=== PATIENT | female | born 1960 | race Caucasian/White ===

== ENCOUNTER 2016-09-02 03:47 | Emergency (ER) | payer OTHER ==
[2016-09-02 04:08] VITALS: BP 151/71
--- NOTE | 2016-09-02 04:50 | EDM.PDOC ---
ED HPI GENERAL MEDICAL PROBLEM - General Chief Complaint: Fever Stated Complaint: FEVER/COUGH/CONGESTION Time Seen by Provider: 09/02/16 04:06 Source of Information: Reports: Patient, RN Notes Reviewed - History of Present Illness INITIAL COMMENTS - FREE TEXT/NARRATIVE: 56-year-old lady comes in with cough, nasal and sinus congestion, and new-onset fever and chills early this morning. She's been coughing for about a week to 10 days. She's had a lot of nasal and sinus congestion. There's been postnasal drainage. What she has been blowing and spitting out his been yellow in coloration. However she had not been running a fever until very early this morning with sudden onset of fever and chills. She did take some Tylenol about an hour and half ago. Continues to have fever on arrival to the ED. He said mild scratchy throat but no severe throat discomfort. She does not feel short of breath. No abdominal pain vomiting or other unusual symptomatology. Headache Pain Score (Numeric/FACES): 8 - Related Data Allergies Allergy/AdvReac Type Severity Reaction Status Date / Time Penicillins Allergy Rash Verified 05/26/14 13:53 Sulfa (Sulfonamide Allergy rash/hives Verified 05/26/14 13:53 Antibiotics) Home Meds: Home Meds Hydrochlorothiazide 25 mg PO DAILY 08/03/13 [History] Hydroxychloroquine Sulfate [Plaquenil] 200 mg PO BID 02/05/14 [History] Methotrexate 15 mg PO Q7D 02/05/14 [History] Folic Acid 1 mg PO DAILY 05/25/14 [History] Nitrofurantoin [place]/Macrocryst [Nitrofurantoin [place]-MCR] 100 mg PO ASDIRECTED PRN 05/25/14 [History] Simvastatin 1 tab PO QPM 05/25/14 [History] Levofloxacin [Levaquin] 500 mg PO ONETIME #7 tablet 09/02/16 [Rx] Levothyroxine [Synthroid] 100 mcg PO DAILY 09/02/16 [History] Past Medical History HEENT History: Reports: Cataract Genitourinary History: Reports: Renal Calculus Musculoskeletal History: Reports: RA Endocrine/Metabolic History: Reports: Hypothyroidism - Past Surgical History HEENT Surgical History: Reports: Cataract Surgery Female Surgical History: Reports: Section, Hysterectomy, Other (See Below) Other Female Surgeries/Procedures: Left kidney removed. Musculoskeletal Surgical History: Reports: Other (See Below) Other Musculoskeletal Surgeries/Procedures:: lower back and upper neck sx Social & Family History - Family History Family Medical History: Noncontributory - Tobacco Use Smoking Status *Q: Never Smoker Used Tobacco, but Quit: Yes Second Hand Smoke Exposure: No - Alcohol Use Days Per Week of Alcohol Use: 0 - Recreational Drug Use Recreational Drug Use: No ED ROS GENERAL - Review of Systems Review Of Systems: See Below Constitutional: Reports: Fever, Chills HEENT: Reports: Rhinitis, Sinus Problem, Throat Pain (Mild) Respiratory: Reports: Cough, Sputum (Yellow). Denies: Shortness of Breath, Wheezing, Pleuritic Chest Pain Cardiovascular: Reports: Chest Pain (With coughing) GI/Abdominal: Denies: Abdominal Pain, Nausea, Vomiting Musculoskeletal: Reports: Other (Generalized achiness) Skin: Denies: Rash Neurological: Reports: Dizziness (Mild) ED EXAM, GENERAL - Physical Exam Exam: See Below General Appearance: Alert, Mild Distress Eye Exam: Bilateral Eye: PERRL Ears: Normal External Exam Throat/Mouth: Normal Inspection, Normal Oropharynx Head: Sinus Tenderness (Bilateral). No: Facial Swelling Neck: Supple. No: Lymphadenopathy (L), Lymphadenopathy (R) Respiratory/Chest: No Respiratory Distress, Lungs Clear, Normal Breath Sounds Cardiovascular: Tachycardia GI/Abdominal: Soft, Non-Tender Extremities: Normal Inspection. No: Pedal Edema, Leg Pain Neurological: Alert, Oriented, No Motor/Sensory Deficits Skin Exam: Warm, Dry Course - Vital Signs Last Recorded V/S: Last Vital Signs Temp 100.0 F 09/02/16 04:04 Pulse 109 H 09/02/16 04:04 Resp 18 09/02/16 04:04 BP 151/71 H 09/02/16 04:04 Pulse Ox 94 L 09/02/16 04:04 - Orders/Labs/Meds Orders: Active Orders 24 hr Category Date Time Status Chest 1V Frontal [CR] Stat Exams 09/02/16 04:33 Taken Meds: Medications Discontinued Medications Generic Name Dose Route Start Last Admin Trade Name Freq PRN Reason Stop Dose Admin Levofloxacin 750 mg 09/02/16 04:53 Levaquin PO 09/02/16 04:54 ONETIME ONE Departure - Departure Time of Disposition: 04:59 Disposition: Home, Self-Care 01 Condition: fair Clinical Impression: Sinusitis Qualifiers: Sinusitis location: unspecified location Chronicity: acute Recurrence: not specified as recurrent Qualified Code(s): J01.90 - Acute sinusitis, unspecified - Discharge Information Forms: ED Department Discharge, Return to Work/School Form Additional Instructions: Rest, drink plenty of fluids, you've been given Levaquin 750 mg orally while here in the ED, the prescription for Levaquin 500 milligrams [facility]. Take that once daily for one week or until gone, followup clinic if not much better within 3-4 days as expected, continue Tylenol every 6- 8 hours as needed for fever or other discomfort, You may take Advil or ibuprofen in between doses as needed. Return to ED as needed if symptoms worsening in any way. - My Orders Last 24 Hours: My Active Orders 09/02/16 04:33 Chest 1V Frontal [CR] Stat - Assessment/Plan Last 24 Hours: My Active Orders 09/02/16 04:33 Chest 1V Frontal [CR] Stat
[2016-09-02] MEDS ORDERED: Levofloxacin 250 MG Tab PO ONE (04:53)
--- NOTE | 2016-09-02 09:37 | CR ---
Chest: Portable view of the chest was obtained. Comparison: Previous chest x-ray of 07/26/15. Heart size and mediastinum are within normal limits for portable technique. Lungs are clear with no acute infiltrates. Bony structures are grossly intact. Previous cervical spine surgery is noted. Impression: 1. Nothing acute is identified on portable chest x-ray. Diagnostic code #1
== END 2016-09-02 05:11 | disposition home or self-care (01) ==
LOC: JD.ED 03:47
DX: J01.90 Acute sinusitis, unspecified (principal); E03.9 Hypothyroidism, unspecified; Z98.49 Cataract extraction status, unspecified eye; Z90.710 Acquired absence of both cervix and uterus; Z98.890 Other specified postprocedural states; Z90.5 Acquired absence of kidney; Z87.891 Personal history of nicotine dependence; Z79.899 Other long term (current) drug therapy; Z88.0 Allergy status to penicillin; Z88.2 Allergy status to sulfonamides
CPT/HCPCS: 71010; 99283; A9270

== ENCOUNTER 2019-12-07 06:13 | Emergency (ER) | payer OTHER ==
[2019-12-07] MEDS ORDERED: Ondansetron 4 MG/2 ML SDV IVPUSH ONE (06:59)
[2019-12-07] MEDS ORDERED: HYDROmorphone 1 MG/ML Syringe IVPUSH ONE (06:59)
[2019-12-07] MEDS ORDERED: Dextrose 5%-0.9% NaCl 1,000 ML IV SCH (07:00)
[2019-12-07] MEDS ORDERED: Ketorolac 30 MG/ML SDV IVPUSH SCH (07:00)
--- NOTE | 2019-12-07 07:03 | EDM.PDOC ---
ED HPI GENERAL MEDICAL PROBLEM - General Chief Complaint: Flank Pain Stated Complaint: HEADACHE/R FLANK PAIN/NAUSEA Time Seen by Provider: 12/07/19 06:58 Source of Information: Reports: Patient History Limitations: Reports: No Limitations - History of Present Illness INITIAL COMMENTS - FREE TEXT/NARRATIVE: 59-year-old female presents to the ED with a pounding throbbing headache that she awoke with around 0430 hrs. this morning. Associated nausea. She states she rarely gets headaches. She then appreciated that she was experiencing significant right low back flank pain. She denies any dysuria urgency or frequency. She has a history of kidney stones but last bout was about 14 years ago. She has not noticed any dark color to her urine or ignacio blood. She feels cold and chilled. She is mildly warm to palpation. Has not vomited at home. Denies cough or sputum production. No previous abdominal surgery she states however she only has the right kidney . 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 Onset: Today, Sudden Onset Date: 12/07/19 Onset Time: 04:30 Duration: Hour(s):, Getting Worse Location: Reports: Head, Back (Generalized pounding throbbing headache. Right flank and lower back pain) Quality: Reports: Ache, Throbbing Severity: Moderate (8 out of 10) Improves with: Reports: None Worsens with: Reports: None, Rest Context: Denies: Activity, Exercise, Lifting, Sick Contact, Trauma, Other Associated Symptoms: Reports: Fever/Chills, Headaches, Loss of Appetite, Nausea/Vomiting. 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) Other Treatments SALES PERFORMANCE ANALYST: 50 mg tramadol - Related Data Allergies Allergy/AdvReac Type Severity Reaction Status Date / Time Penicillins Allergy Severe Rash Verified 12/07/19 06:36 Sulfa (Sulfonamide Allergy Severe rash/hives Verified 12/07/19 06:36 Antibiotics) Home Meds: Home Meds hydroCHLOROthiazide [Hydrochlorothiazide] 25 mg PO DAILY 08/03/13 [History] Hydroxychloroquine Sulfate [Plaquenil] 200 mg PO BID 02/05/14 [History] Methotrexate 15 mg PO Q7D 10/19/14 [History] Folic Acid 1 mg PO DAILY 05/25/14 [History] Nitrofurantoin [place]/Macrocryst [Nitrofurantoin [place]-MCR] 100 mg PO ASDIRECTED PRN 05/25/14 [History] Simvastatin 1 tab PO QPM 05/25/14 [History] Levofloxacin [Levaquin] 500 mg PO ONETIME #7 tablet 09/02/16 [Rx] Levothyroxine [Synthroid] 100 mcg PO DAILY 09/02/16 [History] Past Medical History HEENT History: Reports: Cataract Cardiovascular History: Reports: High Cholesterol Genitourinary History: Reports: Renal Calculus, Other (See Below) (Patient has h ad lithotripsy as well as surgery to remove stones from the right ureter.) Musculoskeletal History: Reports: RA Endocrine/Metabolic History: Reports: Hypothyroidism - Past Surgical History HEENT Surgical History: Reports: Cataract Surgery Female Surgical History: Reports: Section, Hysterectomy, Other (See Below) Other Female Surgeries/Procedures: Left kidney removed. Musculoskeletal Surgical History: Reports: Other (See Below) Other Musculoskeletal Surgeries/Procedures:: lower back and upper neck sx Social & Family History - Family History Family Medical History: Noncontributory - Tobacco Use Smoking Status *Q: Former Smoker Used Tobacco, but Quit: Yes Month/Year Tobacco Last Used: 1999 - Living Situation & Occupation Living situation: Reports: Occupation: Employed ED ROS GENERAL - Review of Systems Review Of Systems: See Below Constitutional: Reports: Fever, Chills, Malaise, Weakness, Fatigue, Decreased Appetite HEENT: Reports: No Symptoms Respiratory: Denies: Shortness of Breath, Wheezing, Pleuritic Chest Pain, Cough, Sputum Cardiovascular: Reports: No Symptoms Endocrine: Reports: Fatigue GI/Abdominal: Reports: Decreased Appetite, Nausea. Denies: Vomiting : Reports: Flank Pain (Right flank pain). Denies: Frequency, Urgency Musculoskeletal: Reports: Back Pain (Right lower back pain) Skin: Reports: No Symptoms Neurological: Reports: Headache (Constant pounding throbbing headache.) Psychiatric: Reports: No Symptoms Hematologic/Lymphatic: Reports: No Symptoms Immunologic: Reports: No Symptoms ED EXAM, RENAL/ - Physical Exam Exam: See Below Exam Limited By: No Limitations General Appearance: Alert, WD/WN, Moderate Distress, Other (Patient does feel warm to palpation. Temperature is recorded 37.5 pulse is 72 and sinus respiratory 16 sats are 96% on room air BP 161/83) Eye Exam: Bilateral Eye: Normal Inspection, PERRL Respiratory/Chest: No Respiratory Distress, Lungs Clear, Normal Breath Sounds, No Accessory Muscle Use Cardiovascular: Normal Peripheral Pulses, Regular Rate, Rhythm, No Edema, No Gallop, No Murmur, No Rub GI/Abdominal: Normal Bowel Sounds, Soft, Non-Tender, No Organomegaly, No Abnormal Bruit, No Mass, Pelvis Stable Back Exam: Normal Inspection, Full Range of Motion, Decreased Range of Motion, Paraspinal Tenderness (Right side from thoracic 9 to lumbar 3 to palpation. No true CVA tenderness identified). No: CVA Tenderness (L), CVA Tenderness (R) Extremities: Normal Inspection, Normal Range of Motion, Non-Tender, No Pedal Edema Neurological: Alert, Oriented, CN II-XII Intact, Normal Cognition, Normal Gait Psychiatric: Normal Affect, Normal Mood Skin Exam: Warm, Dry, Intact, Normal Color Course - Vital Signs Last Recorded V/S: Last Vital Signs Temp 37.5 C 12/07/19 06:31 Pulse 72 12/07/19 06:31 Resp 16 12/07/19 06:31 BP 161/83 H 12/07/19 06:31 Pulse Ox 96 12/07/19 06:31 - Orders/Labs/Meds Orders: Active Orders 24 hr Category Date Time Status Oxygen Therapy, ED [RC] ASDIRECTED Care 12/07/19 07:36 Active CORONAVIRUS COVID-19 PCR PHL Stat Lab 12/07/19 08:47 Ordered CULTURE BLOOD [BC] Stat Lab 12/07/19 07:36 Received CULTURE BLOOD [BC] Stat Lab 12/07/19 07:43 Received Dextrose 5%-0.9% NaCl [Dextrose 5%-Normal Saline] 1,000 Med 12/07/19 07:00 Active ml IV ASDIRECTED Ketorolac [Toradol] Med 12/07/19 07:00 Active 30 mg IVPUSH ONETIME Blood Culture x2 Reflex Set [OM.PC] Stat Oth 12/07/19 07:07 Ordered Medication Orders Dextrose/Sodium Chloride (Dextrose 5%-Normal Saline) 1,000 mls @ 500 mls/hr IV ASDIRECTED [facility] Last Admin: 12/07/19 07:19 Dose: 500 mls/hr Documented by: RUBIA Ketorolac Tromethamine (Toradol) 30 mg IVPUSH ONETIME DEBBY Last Admin: 12/07/19 07:12 Dose: 30 mg Documented by: RUBIA Labs: Laboratory Tests 12/07/19 12/07/19 12/07/19 Range/Units 06:56 06:56 06:56 WBC 3.11 L (3.98-10.04) K/mm3 RBC 3.98 (3.98-5.22) M/mm3 Hgb 12.8 (11.2-15.7) gm/dl Hct 39.3 (34.1-44.9) % MCV 98.7 H D (79.4-94.8) fl MCH 32.2 (25.6-32.2) pg MCHC 32.6 (32.2-35.5) g/dl RDW Std Deviation 44.8 (36.4-46.3) fL Plt Count 210 D (182-369) K/mm3 MPV 10.8 (9.4-12.3) fl Neutrophils % (Manual) 74 H (40-60) % Band Neutrophils % 0 (0-10) % Lymphocytes % (Manual) 17 L (20-40) % Atypical Lymphs % 0 % Monocytes % (Manual) 8 (2-10) % Eosinophils % (Manual) 0 L (0.7-5.8) % Basophils % (Manual) 1 (0.1-1.2) Platelet Estimate Adequate Plt Morphology Comment See note RBC Morph Comment Normal ESR (0-20) mm/hr Sodium 136 (136-145) mEq/L Potassium 3.8 (3.5-5.1) mEq/L Chloride 103 (98-107) mEq/L Carbon Dioxide 26 (21-32) mEq/L Anion Gap 10.8 (5-15) BUN 13 (7-18) mg/dL Creatinine 0.8 (0.55-1.02) mg/dL Est Cr Clr Drug Dosing 68.97 mL/min Estimated GFR (MDRD) > 60 (>60) mL/min BUN/Creatinine Ratio 16.3 (14-18) Glucose 91 (74-106) mg/dL Lactic Acid (0.4-2.0) mmol/L Calcium 8.9 (8.5-10.1) mg/dL Magnesium 1.7 L (1.8-2.4) mg/dl Total Bilirubin 0.2 (0.2-1.0) mg/dL AST 28 (15-37) U/L ALT 37 (14-59) U/L Alkaline Phosphatase 64 (46-116) U/L C-Reactive Protein 0.4 (<1.0) mg/dL Total Protein 6.2 L (6.4-8.2) g/dl Albumin 3.6 (3.4-5.0) g/dl Globulin 2.6 gm/dL Albumin/Globulin Ratio 1.4 (1-2) Urine Color Yellow (Yellow) Urine Appearance Clear (Clear) Urine pH 8.0 (5.0-8.0) Ur Specific [place] 1.020 (1.005-1.030) Urine Protein Negative (Negative) Urine Glucose (UA) Negative (Negative) Urine Ketones Negative (Negative) Urine Occult Blood Negative (Negative) Urine Nitrite Negative (Negative) Urine Bilirubin Negative (Negative) Urine Urobilinogen 0.2 (0.2-1.0) Ur Leukocyte Esterase Negative (Negative) Urine RBC 0-5 (0-5) /hpf Urine WBC 0-5 (0-5) /hpf Ur Epithelial Cells Not seen (0-5) /hpf Urine Bacteria Rare (FEW) /hpf Urine Mucus Not seen (FEW) /hpf 12/07/19 12/07/19 Range/Units 06:56 07:36 WBC (3.98-10.04) K/mm3 RBC (3.98-5.22) M/mm3 Hgb (11.2-15.7) gm/dl Hct (34.1-44.9) % MCV (79.4-94.8) fl MCH (25.6-32.2) pg MCHC (32.2-35.5) g/dl RDW Std Deviation (36.4-46.3) fL Plt Count (182-369) K/mm3 MPV (9.4-12.3) fl Neutrophils % (Manual) (40-60) % Band Neutrophils % (0-10) % Lymphocytes % (Manual) (20-40) % Atypical Lymphs % % Monocytes % (Manual) (2-10) % Eosinophils % (Manual) (0.7-5.8) % Basophils % (Manual) (0.1-1.2) Platelet Estimate Plt Morphology Comment RBC Morph Comment ESR 4 (0-20) mm/hr Sodium (136-145) mEq/L Potassium (3.5-5.1) mEq/L Chloride (98-107) mEq/L Carbon Dioxide (21-32) mEq/L Anion Gap (5-15) BUN (7-18) mg/dL Creatinine (0.55-1.02) mg/dL Est Cr Clr Drug Dosing mL/min Estimated GFR (MDRD) (>60) mL/min BUN/Creatinine Ratio (14-18) Glucose (74-106) mg/dL Lactic Acid 0.3 L (0.4-2.0) mmol/L Calcium (8.5-10.1) mg/dL Magnesium (1.8-2.4) mg/dl Total Bilirubin (0.2-1.0) mg/dL AST (15-37) U/L ALT (14-59) U/L Alkaline Phosphatase (46-116) U/L C-Reactive Protein (<1.0) mg/dL Total Protein (6.4-8.2) g/dl Albumin (3.4-5.0) g/dl Globulin gm/dL Albumin/Globulin Ratio (1-2) Urine Color (Yellow) Urine Appearance (Clear) Urine pH (5.0-8.0) Ur Specific [place] (1.005-1.030) Urine Protein (Negative) Urine Glucose (UA) (Negative) Urine Ketones (Negative) Urine Occult Blood (Negative) Urine Nitrite (Negative) Urine Bilirubin (Negative) Urine Urobilinogen (0.2-1.0) Ur Leukocyte Esterase (Negative) Urine RBC (0-5) /hpf Urine WBC (0-5) /hpf Ur Epithelial Cells (0-5) /hpf Urine Bacteria (FEW) /hpf Urine Mucus (FEW) /hpf Meds: Medications Generic Name Dose Route Start Last Admin Trade Name Freq PRN Reason Stop Dose Admin Dextrose/Sodium Chloride 1,000 mls @ 500 mls/hr 12/07/19 07:00 12/07/19 07:19 Dextrose 5%-Normal Saline IV 500 mls/hr ASDIRECTED DEBBY Administration Ketorolac Tromethamine 30 mg 12/07/19 07:00 12/07/19 07:12 Toradol IVPUSH 30 mg ONETIME DEBBY Administration Discontinued Medications Generic Name Dose Route Start Last Admin Trade Name Frank PRN Reason Stop Dose Admin Hydromorphone HCl 1 mg 12/07/19 06:59 12/07/19 07:14 Dilaudid IVPUSH 12/07/19 07:00 1 mg ONETIME ONE Administration Ondansetron HCl 4 mg 12/07/19 06:59 12/07/19 07:10 Zofran IVPUSH 12/07/19 07:00 4 mg ONETIME ONE Administration - Radiology Interpretation Free Text/Narrative:: 59-year-old female presents to the ED with a constant pounding throbbing headac he that she woke with at 0430 hrs. this morning. She rarely gets a headache. Associated nausea and photophobia. Secondly she is appreciated diffuse right low back pain starting in her right flank and radiating down the lower right lower back. She has a history of kidney stones but no stone is been passed for about 14 years. Prior to that she did have lithotripsy and sounds like open ureterotomy to remove the stone. Clinically she is febrile. She feels chilled. She was fine when she went to bed. She denies any history of dysuria urgency or frequency. Note no obvious blood in the urine. No flank pain on exam. Neuro exam is normal. Plan IV D5 normal saline at 500 mils per hour. Septic work-up will be completed including a lactic acid. Urinalysis . Plan will be to give her Dilaudid 1 mg with Toradol 30 mg and Zofran 4 mg IV for headache and nausea relief. - Re-Assessments/Exams Free Text/Narrative Re-Assessment/Exam: 12/07/19 08:19 White count is 3.11. Differential still pending hemoglobin is 12.8 with a hematocrit of 39.3. MCV is mildly elevated at 98.7. Platelet count 210,000. Chemistry shows a sodium of 136 and a potassium of 3.8. . Chloride is 103 with a bicarb of 26. Anion gap is 10.8. BUN is 13 with a creatinine of 0.8. GFR is greater than 60. Glucose is 91 lactic acid 0.3. Calcium is 8.9 magnesium slightly low at 1.7. Liver function normal C-reactive protein 0.4 total protein 6.2 albumin fraction 3.6 urinalysis reveals no abnormalities 12/07/19 08:44 Differential on the white count is 74% neutrophils no bands cells reported. The slide shows rare giant platelets appreciated. The mentation rate is 4. 12/07/19 08:48 on review the patient is feeling much improved. Headache is gone. Backache is markedly improved as well. Appears that her backache was still more musculoskeletal in origin since the urinalysis is negative. 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 She will be screened before she leaves. COVID-19 test will be sent to [facility] for analysis. She will be off work for the next 2 days until we know for sure that she is COVID negative. Continue Motrin 600 mg every 6 hours as needed for headache relief as needed. Departure - Departure Time of Disposition: 08:49 Disposition: Home, Self-Care 01 Condition: Fair Clinical Impression: Headache Qualifiers: Headache type: unspecified Headache chronicity pattern: acute headache Intractability: not intractable Qualified Code(s): R51 - Headache Acute low back pain Qualifiers: Back pain laterality: right Sciatica presence: without sciatica Qualified Code(s): M54.5 - Low back pain - Discharge Information *PRESCRIPTION DRUG MONITORING PROGRAM REVIEWED*: Not Applicable *COPY OF PRESCRIPTION DRUG MONITORING REPORT IN PATIENT ZEYAD: Not Applicable Referrals: Lisa Arroyo PA-C [Primary Care Provider] - Forms: ED Department Discharge, ED Return to Work/School Form Additional Instructions: Evaluation in the emergency room this morning in regards to awakening with a significant headache and photophobia characteristic of a migraine type headache. Associated nausea without vomiting. Also associated diffuse right low back pain. Concern was therefore for possible kidney stone recurrence or infection. No signs of infection were identified in the urinalysis and in fact it was completely normal. No suggestion of kidney stone. You were treated with a liter of IV fluids while in the ED you were given Dilaudid 1 mg with Toradol 30 mg IV and Zofran 4 mg IV for headache and nausea relief. You do have a low- grade fever. Therefore COVID-19 testing was carried out and the results should be available tomorrow afternoon as they will be sent to [facility] lab. Suggest continue Motrin 600 mg every 6 hours needed for headache relief back pain relief and fever relief. Off work today and tomorrow until the results of the COVID-19 test become available to you. We usually phone from the ED once the results are available to us. Suggest home to rest this morning and then resume regular diet as able. Sepsis Event Note (ED) - Evaluation Sepsis Screening Result: No Definite Risk - Focused Exam Vital Signs: Vital Signs Temp Pulse Resp BP Pulse Ox 12/07/19 06:31 37.5 C 72 16 161/83 H 96 - My Orders Last 24 Hours: My Active Orders 12/07/19 07:00 Dextrose 5%-0.9% NaCl [Dextrose 5%-Normal Saline] 1,000 ml IV ASDIRECTED Ketorolac [Toradol] 30 mg IVPUSH ONETIME 12/07/19 07:07 Blood Culture x2 Reflex Set [OM.PC] Stat 12/07/19 07:36 Oxygen Therapy, ED [RC] ASDIRECTED CULTURE BLOOD [BC] Stat 12/07/19 07:43 CULTURE BLOOD [BC] Stat 12/07/19 08:47 CORONAVIRUS COVID-19 PCR PHL Stat - Assessment/Plan Last 24 Hours: My Active Orders 12/07/19 07:00 Dextrose 5%-0.9% NaCl [Dextrose 5%-Normal Saline] 1,000 ml IV ASDIRECTED Ketorolac [Toradol] 30 mg IVPUSH ONETIME 12/07/19 07:07 Blood Culture x2 Reflex Set [OM.PC] Stat 12/07/19 07:36 Oxygen Therapy, ED [RC] ASDIRECTED CULTURE BLOOD [BC] Stat 12/07/19 07:43 CULTURE BLOOD [BC] Stat 12/07/19 08:47 CORONAVIRUS COVID-19 PCR PHL Stat
[2019-12-07 09:18] VITALS: BP 107/61; PULSE 68
== END 2019-12-07 09:17 | disposition home or self-care (01) ==
LOC: JD.ED 06:13
DX: U07.1 COVID-19 (principal); E03.9 Hypothyroidism, unspecified; E78.00 Pure hypercholesterolemia, unspecified; Z79.899 Other long term (current) drug therapy; Z87.891 Personal history of nicotine dependence; Z88.0 Allergy status to penicillin; Z88.2 Allergy status to sulfonamides
CPT/HCPCS: 36415; 80053; 81001; 83605; 83735; 85007; 85027; 85652; 86140; 87040; 87635; 96374; 96375; 99284; J1170; J1885; J2405; J7042; U0002

== ENCOUNTER 2020-02-09 19:08 | Emergency (ER) | payer OTHER ==
[2020-02-09 19:35] VITALS: BP 160/74; PULSE 77
[2020-02-09] MEDS ORDERED: HYDROmorphone 0.5 MG/0.5 ML Syringe IVPUSH ONE (19:41)
[2020-02-09] MEDS ORDERED: Acetaminophen 325 MG Tab PO ONE (19:41)
[2020-02-09] MEDS ORDERED: Ondansetron 4 MG/2 ML SDV IVPUSH ONE (19:41)
[2020-02-09] MEDS ORDERED: Dextrose 5%-0.9% NaCl 1,000 ML IV SCH (19:45)
--- NOTE | 2020-02-09 19:45 | EDM.PDOC ---
ED HPI GENERAL MEDICAL PROBLEM - General Chief Complaint: Headache Stated Complaint: HEADACHE/BODY ACHES Time Seen by Provider: 02/09/20 19:40 Source of Information: Reports: Patient History Limitations: Reports: No Limitations - History of Present Illness INITIAL COMMENTS - FREE TEXT/NARRATIVE: 59-year-old female presents to the ED for evaluation of generalized myalgia and particularly right mid back pain. Associated generalized headache with associated nausea and photophobia. She gets a headache occasionally. She was reports that she did see her desk operator in [place] yesterday and received a Kenalog injection in the right buttock. She states that she had a similar type reaction in November of this year with development of headache and body aches after receiving Kenalog injection but I was also identified at that time to be COVID-19 positive. She denies cough or sputum production. However she is well aware she has a fever of 102 at home. No rigors or shakes. Has felt chilled. Decreased appetite. Still has not regained her sense of taste or smell since initial Covid diagnosis the end of November( dec 07) had returned to work over the last 2 weeks and was feeling well up until yesterday after receiving the Kenalog injection. On exam she is definitely very warm to palpation. She indicates that she has in fact had her flu shot this year as well. Of note the patient only has a right kidney. 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 Onset: Today, Sudden Onset Date: 02/09/20 Onset Time: 09:00 Duration: Hour(s):, Getting Worse Location: Reports: Generalized (Generalized myalgia with associated headache) Quality: Reports: Ache (Neurolysed body aches) Severity: Moderate (Rates her headache as 8 out of 10) Improves with: Reports: Rest Worsens with: Reports: Movement Context: Reports: Other (Spontaneous occurrence.). Denies: Activity, Exercise, Lifting, Sick Contact, Trauma Associated Symptoms: Reports: Fever/Chills, Headaches, Loss of Appetite, Malaise, Nausea/Vomiting, Shortness of Breath, Weakness. 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 Anterior Forehead Pain Score (Numeric/FACES): 8 - Related Data Allergies Allergy/AdvReac Type Severity Reaction Status Date / Time Penicillins Allergy Severe Rash Verified 02/09/20 19:27 Sulfa (Sulfonamide Allergy Severe rash/hives Verified 02/09/20 19:27 Antibiotics) Home Meds: Home Meds hydroCHLOROthiazide [Hydrochlorothiazide] 25 mg PO DAILY 08/03/13 [History] Methotrexate 15 mg PO Q7D 02/05/14 [History] Folic Acid 1 mg PO DAILY 05/25/14 [History] Nitrofurantoin [place]/Macrocryst [Nitrofurantoin [place]-MCR] 100 mg PO ASDIRECTED PRN 05/25/14 [History] Simvastatin 1 tab PO QPM 05/25/14 [History] Levothyroxine [Synthroid] 100 mcg PO DAILY 09/02/16 [History] levoFLOXacin [Levaquin] 500 mg PO DAILY #9 tab 02/09/20 [Rx] Past Medical History HEENT History: Reports: Cataract Cardiovascular History: Reports: High Cholesterol Genitourinary History: Reports: Renal Calculus, Other (See Below) Musculoskeletal History: Reports: RA Endocrine/Metabolic History: Reports: Hypothyroidism, Obesity/BMI 30+ - Infectious Disease History Infectious Disease History: Reports: Novel Coronavirus - Past Surgical History HEENT Surgical History: Reports: Cataract Surgery Female Surgical History: Reports: Section, Hysterectomy, Other (See Below) Other Female Surgeries/Procedures: Left kidney removed. Musculoskeletal Surgical History: Reports: Other (See Below) Other Musculoskeletal Surgeries/Procedures:: lower back and upper neck sx Social & Family History - Family History Family Medical History: Noncontributory - Living Situation & Occupation Living situation: Reports: Occupation: Employed [employer] - Review of Systems Review Of Systems: See Below Constitutional: Reports: Fever, Chills, Malaise, Weakness, Fatigue, Decreased Appetite HEENT: Reports: Glasses Respiratory: Reports: Shortness of Breath. Denies: Wheezing, Pleuritic Chest Pain, Cough, Hemoptysis, Other Cardiovascular: Reports: Blood Pressure Problem, Dyspnea on Exertion, Lightheadedness, Palpitations. Denies: Claudication, Edema, Orthopnea Endocrine: Reports: Fatigue GI/Abdominal: Reports: Decreased Appetite, Nausea. Denies: Diarrhea, Vomiting : Denies: Dysuria, Incontinence, Urgency Musculoskeletal: Reports: Back Pain, Joint Pain (Particular in her knees hips lower back neck and shoulders.) Skin: Reports: No Symptoms Neurological: Reports: Dizziness, Headache, Weakness. Denies: Confusion, Syncope, Tingling, Gait Disturbance Psychiatric: Reports: No Symptoms Hematologic/Lymphatic: Reports: No Symptoms Immunologic: Reports: No Symptoms - Physical Exam Exam: See Below Exam Limited By: No Limitations General Appearance: Alert, WD/WN, Moderate Distress, Other (Patient is very warm to palpation. Temperature is 37.8 degrees according to nursing staff. Heart rate 77 respiratory rate 14 with O2 sats of 94% room air BP 160/74) Eye Exam: Bilateral Eye: Normal Inspection (No blepharal pallor or scleral icterus.) Throat/Mouth: Normal Inspection, Normal Lips, Normal Oropharynx, Other Head Exam: Atraumatic, Normocephalic (Tongue is moist) Neck: Normal Inspection, Full Range of Motion, Tender Lateral (Tender bilateral aspect of lateral cervical spine which is normal for her.). No: Lymphadenopathy (L), Lymphadenopathy (R) Respiratory/Chest: Lungs Clear, Normal Breath Sounds, Decreased Breath Sounds (Breath sounds are decreased to the lower 25% of lung martinez bilaterally) Cardiovascular: Normal Peripheral Pulses ( due to shallow breathing.), Regular Rate, Rhythm, No Edema, No Gallop, No Murmur, No Rub GI/Abdominal: Normal Bowel Sounds, Soft, Non-Tender, No Organomegaly, No Mass, Pelvis Stable. No: Guarding, Rigid, Rebound, Tender Neuro Exam (Abbreviated): Alert, Oriented, CN II-XII Intact, Normal Cognition, No Motor/Sensory Deficits Back Exam: Normal Inspection, CVA Tenderness (L), CVA Tenderness (R), Decreased Range of Motion, Paraspinal Tenderness. No: Muscle Spasm Extremities: Normal Inspection, Normal Range of Motion, Non-Tender, No Pedal Edema Psychiatric: Normal Affect, Normal Mood Skin Exam: Warm, Dry, Intact, Normal Color, No Rash #1 Interpretation EKG Date: 02/09/20 Time: 19:56 Rhythm: NSR Rate (Beats/Min): 77 [place]: Normal P-Wave: Enlarged (Left atrial hypertrophy pattern) QRS: Other (Initial poor R wave progression. Decreased voltage throughout the precordial leads.) ST-T: Other (T wave flattening aVL in lead V2 nonspecific finding) QT: Prolonged (Mildly prolonged) Course - Vital Signs Last Recorded V/S: Last Vital Signs Temp 37.8 C 02/09/20 20:16 Pulse 77 02/09/20 19:27 Resp 14 02/09/20 19:27 BP 160/74 H 02/09/20 19:27 Pulse Ox 94 L 02/09/20 19:27 - Orders/Labs/Meds Orders: Active Orders 24 hr Category Date Time Status EKG Documentation Completion [RC] STAT Care 02/09/20 19:43 Active Chest 1V Frontal [CR] Stat Exams 02/09/20 19:43 Taken CULTURE BLOOD [BC] Stat Lab 02/09/20 20:10 Received CULTURE BLOOD [BC] Stat Lab 02/09/20 20:20 Received CULTURE URINE [RM] Stat Lab 02/09/20 21:10 Received Dextrose 5%-0.9% NaCl [Dextrose 5%-Normal Saline] 1,000 Med 02/09/20 19:45 Active ml IV ASDIRECTED cefTRIAXone [Rocephin] 2 gm Med 02/09/20 21:45 Active Sodium Chloride 0.9% [Normal Saline] 100 ml IV Q24H Blood Culture x2 Reflex Set [OM.PC] Stat Oth 02/09/20 19:45 Ordered Medication Orders Dextrose/Sodium Chloride (Dextrose 5%-Normal Saline) 1,000 mls @ 500 mls/hr IV ASDIRECTED DEBBY Last Admin: 02/09/20 20:17 Dose: 500 mls/hr Documented by: DYAN Ceftriaxone Sodium 2 gm/ (Sodium Chloride) 100 mls @ 200 mls/hr IV Q24H DEBBY Last Admin: 02/09/20 21:45 Dose: 200 mls/hr Documented by: STACIA Labs: Laboratory Tests 02/09/20 02/09/20 02/09/20 Range/Units 20:10 20:10 20:10 WBC 9.11 (3.98-10.04) K/mm3 RBC 3.97 L (3.98-5.22) M/mm3 Hgb 12.4 (11.2-15.7) gm/dl Hct 37.5 (34.1-44.9) % MCV 94.5 D (79.4-94.8) fl MCH 31.2 (25.6-32.2) pg MCHC 33.1 (32.2-35.5) g/dl RDW Std Deviation 44.0 (36.4-46.3) fL Plt Count 238 (182-369) K/mm3 MPV 10.4 (9.4-12.3) fl Neutrophils % (Manual) 81 H (40-60) % Band Neutrophils % 2 (0-10) % Lymphocytes % (Manual) 7 L (20-40) % Atypical Lymphs % 0 % Monocytes % (Manual) 10 (2-10) % Eosinophils % (Manual) 0 L (0.7-5.8) % Basophils % (Manual) 0 L (0.1-1.2) Platelet Estimate Adequate RBC Morph Comment Normal PT 11.2 (9.7-12.0) SECONDS INR 1.05 APTT 31.8 H (21.7-31.4) SECONDS Sodium 133 L (136-145) mEq/L Potassium 3.2 L (3.5-5.1) mEq/L Chloride 97 L (98-107) mEq/L Carbon Dioxide 24 (21-32) mEq/L Anion Gap 15.2 H (5-15) BUN 9 (7-18) mg/dL Creatinine 0.7 (0.55-1.02) mg/dL Est Cr Clr Drug Dosing 75.65 mL/min Estimated GFR (MDRD) > 60 (>60) mL/min BUN/Creatinine Ratio 12.9 L (14-18) Glucose 90 (74-106) mg/dL Lactic Acid (0.4-2.0) mmol/L Calcium 9.0 (8.5-10.1) mg/dL Magnesium 1.5 L (1.8-2.4) mg/dl Ferritin (8-252) ng/ml Total Bilirubin 0.5 (0.2-1.0) mg/dL AST 15 (15-37) U/L ALT 18 (14-59) U/L Alkaline Phosphatase 62 (46-116) U/L Lactate Dehydrogenase 408 H (81-234) U/L C-Reactive Protein 15.0 H* (<1.0) mg/dL NT-Pro-B Natriuret Pep (0-125) pg/mL Total Protein 6.4 (6.4-8.2) g/dl Albumin 3.2 L (3.4-5.0) g/dl Globulin 3.2 gm/dL Albumin/Globulin Ratio 1.0 (1-2) Urine Color (Yellow) Urine Appearance (Clear) Urine pH (5.0-8.0) Ur Specific [place] (1.005-1.030) Urine Protein (Negative) Urine Glucose (UA) (Negative) Urine Ketones (Negative) Urine Occult Blood (Negative) Urine Nitrite (Negative) Urine Bilirubin (Negative) Urine Urobilinogen (0.2-1.0) Ur Leukocyte Esterase (Negative) Urine RBC (0-5) /hpf Urine WBC (0-5) /hpf Ur Squamous Epith Cells (0-5) /hpf Urine Bacteria (FEW) /hpf Urine Mucus (FEW) /hpf SARS-CoV-2 RNA (FRANCI) (NEGATIVE) 02/09/20 02/09/20 02/09/20 Range/Units 20:10 20:10 20:10 WBC (3.98-10.04) K/mm3 RBC (3.98-5.22) M/mm3 Hgb (11.2-15.7) gm/dl Hct (34.1-44.9) % MCV (79.4-94.8) fl MCH (25.6-32.2) pg MCHC (32.2-35.5) g/dl RDW Std Deviation (36.4-46.3) fL Plt Count (182-369) K/mm3 MPV (9.4-12.3) fl Neutrophils % (Manual) (40-60) % Band Neutrophils % (0-10) % Lymphocytes % (Manual) (20-40) % Atypical Lymphs % % Monocytes % (Manual) (2-10) % Eosinophils % (Manual) (0.7-5.8) % Basophils % (Manual) (0.1-1.2) Platelet Estimate RBC Morph Comment PT (9.7-12.0) SECONDS INR APTT (21.7-31.4) SECONDS Sodium (136-145) mEq/L Potassium (3.5-5.1) mEq/L Chloride (98-107) mEq/L Carbon Dioxide (21-32) mEq/L Anion Gap (5-15) BUN (7-18) mg/dL Creatinine (0.55-1.02) mg/dL Est Cr Clr Drug Dosing mL/min Estimated GFR (MDRD) (>60) mL/min BUN/Creatinine Ratio (14-18) Glucose (74-106) mg/dL Lactic Acid 0.6 (0.4-2.0) mmol/L Calcium (8.5-10.1) mg/dL Magnesium (1.8-2.4) mg/dl Ferritin 225 (8-252) ng/ml Total Bilirubin (0.2-1.0) mg/dL AST (15-37) U/L ALT (14-59) U/L Alkaline Phosphatase (46-116) U/L Lactate Dehydrogenase (81-234) U/L C-Reactive Protein (<1.0) mg/dL NT-Pro-B Natriuret Pep 207 H (0-125) pg/mL Total Protein (6.4-8.2) g/dl Albumin (3.4-5.0) g/dl Globulin gm/dL Albumin/Globulin Ratio (1-2) Urine Color (Yellow) Urine Appearance (Clear) Urine pH (5.0-8.0) Ur Specific [place] (1.005-1.030) Urine Protein (Negative) Urine Glucose (UA) (Negative) Urine Ketones (Negative) Urine Occult Blood (Negative) Urine Nitrite (Negative) Urine Bilirubin (Negative) Urine Urobilinogen (0.2-1.0) Ur Leukocyte Esterase (Negative) Urine RBC (0-5) /hpf Urine WBC (0-5) /hpf Ur Squamous Epith Cells (0-5) /hpf Urine Bacteria (FEW) /hpf Urine Mucus (FEW) /hpf SARS-CoV-2 RNA (FRANCI) (NEGATIVE) 02/09/20 02/09/20 Range/Units 20:13 21:10 WBC (3.98-10.04) K/mm3 RBC (3.98-5.22) M/mm3 Hgb (11.2-15.7) gm/dl Hct (34.1-44.9) % MCV (79.4-94.8) fl MCH (25.6-32.2) pg MCHC (32.2-35.5) g/dl RDW Std Deviation (36.4-46.3) fL Plt Count (182-369) K/mm3 MPV (9.4-12.3) fl Neutrophils % (Manual) (40-60) % Band Neutrophils % (0-10) % Lymphocytes % (Manual) (20-40) % Atypical Lymphs % % Monocytes % (Manual) (2-10) % Eosinophils % (Manual) (0.7-5.8) % Basophils % (Manual) (0.1-1.2) Platelet Estimate RBC Morph Comment PT (9.7-12.0) SECONDS INR APTT (21.7-31.4) SECONDS Sodium (136-145) mEq/L Potassium (3.5-5.1) mEq/L Chloride (98-107) mEq/L Carbon Dioxide (21-32) mEq/L Anion Gap (5-15) BUN (7-18) mg/dL Creatinine (0.55-1.02) mg/dL Est Cr Clr Drug Dosing mL/min Estimated GFR (MDRD) (>60) mL/min BUN/Creatinine Ratio (14-18) Glucose (74-106) mg/dL Lactic Acid (0.4-2.0) mmol/L Calcium (8.5-10.1) mg/dL Magnesium (1.8-2.4) mg/dl Ferritin (8-252) ng/ml Total Bilirubin (0.2-1.0) mg/dL AST (15-37) U/L ALT (14-59) U/L Alkaline Phosphatase (46-116) U/L Lactate Dehydrogenase (81-234) U/L C-Reactive Protein (<1.0) mg/dL NT-Pro-B Natriuret Pep (0-125) pg/mL Total Protein (6.4-8.2) g/dl Albumin (3.4-5.0) g/dl Globulin gm/dL Albumin/Globulin Ratio (1-2) Urine Color Yellow (Yellow) Urine Appearance Slt cloudy H (Clear) Urine pH 7.0 (5.0-8.0) Ur Specific [place] 1.025 (1.005-1.030) Urine Protein 1+ H (Negative) Urine Glucose (UA) Negative (Negative) Urine Ketones Negative (Negative) Urine Occult Blood 3+ H (Negative) Urine Nitrite Positive H (Negative) Urine Bilirubin Negative (Negative) Urine Urobilinogen 0.2 (0.2-1.0) Ur Leukocyte Esterase 1+ H (Negative) Urine RBC 75-100 H (0-5) /hpf Urine WBC 20-30 H (0-5) /hpf Ur Squamous Epith Cells 0-5 (0-5) /hpf Urine Bacteria Moderate H (FEW) /hpf Urine Mucus Few (FEW) /hpf SARS-CoV-2 RNA (FRANCI) Negative (NEGATIVE) Meds: Medications Generic Name Dose Route Start Last Admin Trade Name Freq PRN Reason Stop Dose Admin Dextrose/Sodium Chloride 1,000 mls @ 500 mls/hr 02/09/20 19:45 02/09/20 20:17 Dextrose 5%-Normal Saline IV 500 mls/hr ASDIRECTED DEBBY Administration Ceftriaxone Sodium 2 gm/ 100 mls @ 200 mls/hr 02/09/20 21:45 02/09/20 21:45 Sodium Chloride IV 200 mls/hr Q24H DEBBY Administration Discontinued Medications Generic Name Dose Route Start Last Admin Trade Name Freq PRN Reason Stop Dose Admin Acetaminophen 975 mg 02/09/20 19:41 02/09/20 20:16 Tylenol PO 02/09/20 19:42 975 mg ONETIME ONE Administration Hydromorphone HCl 0.5 mg 02/09/20 19:41 02/09/20 20:16 Dilaudid IVPUSH 02/09/20 19:42 0.5 mg ONETIME ONE Administration Levofloxacin 500 mg 02/09/20 21:51 02/09/20 22:07 Levaquin PO 02/09/20 21:52 500 mg ONETIME ONE Administration Ondansetron HCl 4 mg 02/09/20 19:41 02/09/20 20:16 Zofran IVPUSH 02/09/20 19:42 4 mg ONETIME ONE Administration - Radiology Interpretation Free Text/Narrative:: 59-year-old female presents to the ED with complaints of a generalized throbbing pounding headache diffuse muscle and back pain and myalgia. Patient presented similarly on 07 December with a headache and generalized myalgia and was identified to be COVID-19 positive at that time. She felt she recovered from the illness and good enough to return to work. Of note prior to that episode she had received a Kenalog injection intramuscularly by her desk operator. She was to the desk operator yesterday in [place] and did receive a Kenalog injection in her right buttock. On examination today she is definitely febrile clinically almost 102 degrees. Plan she will have a septic work-up carried out. This will include a influenza screen as influenza B has been increasing in our community and Covid virus of course is still running rampant. She acts like she may have Covid once again. IV will be D5 normal saline at 500 mils per hour. Given Dilaudid 0.5 mg IV with Zofran 4 mg IV for headache relief. 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 Chest x-ray x1 view to be done and urinalysis. Tylenol 9 7 5 mg p.o. for fever relief. - Re-Assessments/Exams Free Text/Narrative Re-Assessment/Exam: 02/09/20 20:51 chest x-ray done portably reveals no pulmonary infiltrates and cardiac silhouette is normal in size. No pleural effusions or pneumothorax identified. PT is 11.2 with an INR of 1.05 PTT is 31.8 mildly elevated. 02/09/20 20:57 patient's headache is markedly improved. She is still mildly febrile on palpation. Still awaiting results of lab tests and patient has yet to void.White count is 9.11 differential pending hemoglobin 12.4 with hematocrit of 37.5. MCV is 94.5. Platelet count 238,000. 02/09/20 21:06 Sodium is 133 with a potassium slightly low at 3.2. Chloride is 97 with a bicarb of 24. Anion gap is 15.2. BUN is 9 with a creatinine of 0.7. GFR is greater than 60. Glucose is 90 with a calcium of 9.0. Magnesium is slightly low at 1.5. Liver function normal. LDH is elevated at 408. C-reacti ve protein is elevated at 15.0 BNP is 207. Total protein 6.4 with an albumin fraction of 3.2. 02/09/20 21:31 Differential on the white blood cell count is 81% neutrophils and 2% bands cells reported. Urinalysis shows it to be slightly cloudy with 1+ proteinuria 3+ occult blood positive nitrates and 1+ leukocyte Estrace. The micro is pending. Questioning the patient states she got a little rash from penicillin in her arm once therefore I will proceed with Rocephin 2 g IV. 02/09/20 21:44 Micro urinalysis reveals 75-100 red blood cells per high-power field and 20-30 white blood cells per high-power field with moderate bacteria appreciated. Urine culture has been ordered. COVID-19 test is negative 02/09/20 21:52 Patient will be given a dose of Levaquin 500 mg p.o. at this time as well. I will be to discharge her home on Levaquin 500 mg once daily for another 9 days with the next dose due tomorrow night at bedtime. Departure - Departure Time of Disposition: 22:30 Disposition: Home, Self-Care 01 Condition: Fair Clinical Impression: Acute febrile illness, Pyelonephritis Headache Qualifiers: Headache type: unspecified Headache chronicity pattern: acute headache Intractability: not intractable Qualified Code(s): R51 - Headache - Discharge Information *PRESCRIPTION DRUG MONITORING PROGRAM REVIEWED*: No *COPY OF PRESCRIPTION DRUG MONITORING REPORT IN PATIENT ZEYAD: No Prescriptions: levoFLOXacin [Levaquin] 500 mg PO DAILY #9 tab Instructions: Pyelonephritis, Adult, [id number], Fever, Adult, [id number] Referrals: Lisa Arroyo PA-C [Primary Care Provider] - Forms: ED Department Discharge, ED Return to Work/School Form Additional Instructions: Evaluation in the emergency room tonight in regards to development of fever and associated bad headache and generalized myalgia or muscle pain particularly noted in your back. This followed coincidentally a Kenalog injection given yesterday by your desk operator. Investigations in the emergency room identified definite fever. The cause identified to be from the urinary tract with kidney infection or pyelonephritis. COVID-19 we test was performed and was negative. Chest x-ray revealed no signs of an infection. Treatment was started in the ED with combination of Tylenol for fever relief and Dilaudid and Zofran for headache and nausea relief. Continue fever management with Motrin 600 mg every 6 hours or Tylenol 650 mg every 4 hours until the antibiotic becomes effective. You were started on oral antibiotic Levaquin 500 mg in the emergency room tonight in the next tab would be due tomorrow night at bedtime and should be continued for 9 days. Suggest off work tomorrow and probably the next day until you can regain your strength and the fever is gone and you are able to eat normally. Follow-up with personal care physician if any further problems occur. Sepsis Event Note (ED) - Evaluation Sepsis Screening Result: No Definite Risk - Focused Exam Vital Signs: Vital Signs Temp Temp Pulse Resp BP Pulse Ox 02/09/20 20:16 37.8 C 02/09/20 19:27 37.8 C 77 14 160/74 H 94 L - My Orders Last 24 Hours: My Active Orders 02/09/20 19:43 EKG Documentation Completion [RC] STAT Chest 1V Frontal [CR] Stat 02/09/20 19:45 Dextrose 5%-0.9% NaCl [Dextrose 5%-Normal Saline] 1,000 ml IV ASDIRECTED Blood Culture x2 Reflex Set [OM.PC] Stat 02/09/20 20:10 CULTURE BLOOD [BC] Stat 02/09/20 20:20 CULTURE BLOOD [BC] Stat 02/09/20 21:10 CULTURE URINE [RM] Stat 02/09/20 21:45 cefTRIAXone [Rocephin] 2 gm Sodium Chloride 0.9% [Normal Saline] 100 ml IV Q24H - Assessment/Plan Last 24 Hours: My Active Orders 02/09/20 19:43 EKG Documentation Completion [RC] STAT Chest 1V Frontal [CR] Stat 02/09/20 19:45 Dextrose 5%-0.9% NaCl [Dextrose 5%-Normal Saline] 1,000 ml IV ASDIRECTED Blood Culture x2 Reflex Set [OM.PC] Stat 02/09/20 20:10 CULTURE BLOOD [BC] Stat 02/09/20 20:20 CULTURE BLOOD [BC] Stat 02/09/20 21:10 CULTURE URINE [RM] Stat 02/09/20 21:45 cefTRIAXone [Rocephin] 2 gm Sodium Chloride 0.9% [Normal Saline] 100 ml IV Q24H
[2020-02-09] MEDS ORDERED: cefTRIAXone 2 GM in Sodium Chloride 0.9% 100 ML IV SCH (21:45)
[2020-02-09] MEDS ORDERED: Levofloxacin 250 MG Tab PO ONE (21:51)
== END 2020-02-09 22:34 | disposition home or self-care (01) ==
LOC: JD.ED 19:08
DX: N12 Tubulo-interstitial nephritis, not specified as acute or chronic (principal); R51.9 Headache, unspecified; E78.00 Pure hypercholesterolemia, unspecified; E03.9 Hypothyroidism, unspecified; E66.9 Obesity, unspecified; Z88.0 Allergy status to penicillin; Z88.2 Allergy status to sulfonamides; Z79.899 Other long term (current) drug therapy; Z20.828 Contact with and (suspected) exposure to other viral communicable diseases
CPT/HCPCS: 36415; 71045; 80053; 81001; 82728; 83605; 83615; 83735; 83880; 85007; 85027; 85610; 85730; 86140; 87040; 87086; 87088; 87184; 87186; 87635; 93005; 96365; 96375; 99284; A9270; J0696; J1170; J2405; J7042; J7050; 93010; U0002

== ENCOUNTER 2020-11-27 06:55 | Day surgery (SDC) | payer OTHER ==
[~2020-11-27 06:55] MED LIST: Albuterol 0.083% 2.5 MG/3 ML Neb Soln NEB ONE; Sodium Chloride 0.9% 10 ML Syringe FLUSH PRN
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
[2020-11-27] MEDS ORDERED: Ketamine 500 mg/10 ML MDV ONE (07:11)
[2020-11-27] MEDS ORDERED: Propofol 200 MG/20 ML SDV ONE (07:11)
[2020-11-27] MEDS ORDERED: Midazolam 1 MG/ML 2 ML SDV ONE ×2 (07:11→07:56)
[2020-11-27] MEDS ORDERED: fentaNYL 100 MCG/2 ML SDV ONE (07:11)
[2020-11-27] MEDS ORDERED: Lidocaine 1% 4 ML ONE (07:14)
[2020-11-27] MEDS ORDERED: Bupivacaine 0.5%/EPINEPHrine 1:200,000 50 ML MDV ONE (07:19)
[2020-11-27] MEDS ORDERED: Lidocaine 1% with EPINEPHrine 1:100,000 10 ML MDV ONE (07:19)
[2020-11-27] MEDS ORDERED: Sodium Chloride 0.9% 10 ML Syringe FLUSH PRN ×2 (07:24)
[2020-11-27] MEDS ORDERED: Lidocaine 1%/Sod Bicarbonate in NS 8.4% 1 ML Syringe IDERM PRN (07:24)
[2020-11-27] MEDS ORDERED: Albuterol 0.083% 2.5 MG/3 ML Neb Soln NEB ONE ×2 (07:30)
[2020-11-27] MEDS ORDERED: Lactated Ringers 1,000 ML IV SCH (07:30)
--- NOTE | 2020-11-27 08:28 | PCM.SN.2 ---
#1 Interpretation EKG Date: 11/27/20 Time: 07:33 Rhythm: NSR Rate (Beats/Min): 64 [place]: Normal P-Wave: Present QRS: Normal ST-T: Normal QT: Normal
[2020-11-27] MEDS ORDERED: fentaNYL 100 MCG/2 ML SDV IVPUSH PRN (08:49)
[2020-11-27] MEDS ORDERED: Ondansetron 4 MG/2 ML SDV IVPUSH PRN (08:49)
[2020-11-27] MEDS ORDERED: HYDROmorphone 0.5 MG/0.5 ML Syringe IVPUSH PRN (08:49)
--- NOTE | 2020-11-27 08:49 | PCM48HPAN ---
Post Anesthesia Note - EVALUATION WITHIN 48HRS OF ANESTHETIC Vital Signs in Normal Range: Yes Patient Participated in Evaluation: Yes Respiratory Function Stable: Yes Airway Patent: Yes Cardiovascular Function Stable: Yes Hydration Status Stable: Yes Pain Control Satisfactory: Yes Nausea and Vomiting Control Satisfactory: Yes Mental Status Recovered: Yes Vital Signs: Last Vital Signs Temp 36.5 C 11/27/20 07:03 Pulse 67 11/27/20 07:03 Resp 18 11/27/20 07:03 BP 144/83 H 11/27/20 07:03 Pulse Ox 96 11/27/20 07:32
--- NOTE | 2020-11-27 08:55 | PCM.PRNOTE ---
- Free Text/Narrative Note: Date: 11/27/2020 Operation: removal of five lipomas of the back Surgeon: Cuate Naik MD Antibiotic: not indicated EBL: 5 cc Findings: 5 lipomatous lesions removed from subcutaneous layer of the back. Each was essentially spherical or oblong in shape, with diameter measurements of 2 cm (lower left back, lateral), 3.5 cm (lower left back, medial), 5 cm (upper back, midline), 3 cm (superior lesion of right lower back) and 5 cm (inferior lesion of right lower back). No specimen was sent for analysis. Detailed Report: The patient was taken to the OR and placed prone. Timeout was performed and monitored anesthesia care initiated. The sites of the lipomas had been marked with the patient in the pre-op area. There were johns at the left lateral lower back, left medial lower back, upper back- midline, and two in close proximity at the right lower back. We worked from left to right. Each site was dealt with sequentially. For each, 5 cc 0.5% marcaine with epinephrine was injected intradermally. A linear incision was made with the scalpel down to subcutaneous fat. A hemostat was used to dissect the lipomas from of surrounding subcutaneous fat. After removal, hemostasis was ensured using monopolar energy. Each site was closed in layers, with simple deep dermal vicryl suture and simple interrupted nylon sutures at the skin surface. Each wound was dressed with dry gauze and tegaderm. She tolerated the operation well.
[2020-11-27 09:54] VITALS: BP 146/69; PULSE 72
== END 2020-11-27 09:52 | disposition home or self-care (01) ==
LOC: JD.SDS 06:55
PROVIDERS: ATTEND Surgery
DX: D17.1 Benign lipomatous neoplasm of skin and subcutaneous tissue of trunk (principal); J45.909 Unspecified asthma, uncomplicated; G47.33 Obstructive sleep apnea (adult) (pediatric); M06.9 Rheumatoid arthritis, unspecified; E78.2 Mixed hyperlipidemia; E03.9 Hypothyroidism, unspecified; Z88.0 Allergy status to penicillin; Z88.2 Allergy status to sulfonamides; Z79.82 Long term (current) use of aspirin; Z79.890 Hormone replacement therapy
CPT/HCPCS: 11402; 11403; 11404; 11406; 93005; 94640; J2250; J2704; J3010; J3490; J7120; 00300

== ENCOUNTER 2021-02-21 10:11 | Day surgery (SDC) | payer OTHER ==
[~2021-02-21 10:11] MED LIST changes: +Acetaminophen 325 MG Tab PO SCH; -Albuterol 0.083% 2.5 MG/3 ML Neb Soln NEB ONE; +Lactated Ringers 1,000 ML IV SCH; +Lidocaine 1%/Sod Bicarbonate in NS 8.4% 1 ML Syringe IDERM PRN; +Pregabalin 25 MG Cap PO SCH; +oxyCODONE ER 10 MG TAB.ER PO SCH
[2021-02-21] MEDS ORDERED: Propofol 200 MG/20 ML SDV ONE ×4 (12:06→14:02)
[2021-02-21] MEDS ORDERED: Ketorolac 30 MG/ML SDV ONE (12:10)
[2021-02-21] MEDS ORDERED: ceFAZolin 1 GM Vial ONE (12:10)
[2021-02-21] MEDS ORDERED: fentaNYL 250 MCG/5 ML SDV ONE (12:10)
[2021-02-21] MEDS ORDERED: Lactated Ringers 1,000 ML ONE (12:10)
[2021-02-21] MEDS ORDERED: Midazolam 1 MG/ML 2 ML SDV ONE (12:10)
[2021-02-21] MEDS ORDERED: Ondansetron 4 MG/2 ML SDV ONE (12:10)
[2021-02-21] MEDS ORDERED: Ropivacaine 0.5% 5 MG/ML 30 ML SDV ONE (12:14)
[2021-02-21] MEDS ORDERED: EPINEPHrine 1 MG/ML SDV ONE (12:14)
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
[2021-02-21] MEDS ORDERED: VANCOMYCIN IV ONE ×3 (12:45)
[2021-02-21] MEDS ORDERED: DEXTROSE 5% IV ONE ×3 (12:45)
[2021-02-21] MEDS ORDERED: WATER IV ONE ×3 (12:45)
[2021-02-21] MEDS ORDERED: Ondansetron 4 MG/2 ML SDV IVPUSH PRN (12:56)
[2021-02-21] MEDS ORDERED: HYDROmorphone 0.5 MG/0.5 ML Syringe IVPUSH PRN (12:56)
[2021-02-21] MEDS ORDERED: fentaNYL 100 MCG/2 ML SDV IVPUSH PRN (12:56)
[2021-02-21] MEDS: Vancomycin 1 GM SDV ONE ×2 (13:24→14:04)
[2021-02-21] MEDS: Morphine 8 MG, EPINEPHrine 0.3 MG, Cefuroxime 750 MG, Ketorolac 30 MG, Sodium Chloride ... PRN ×10 (13:24→13:57)
[2021-02-21] MEDS ORDERED: oxyCODONE 5 MG Tab PO PRN (13:48)
[2021-02-21] MEDS ORDERED: Ondansetron 4 MG Tab.DIS PO PRN (13:48)
[2021-02-21] MEDS ORDERED: Cyclobenzaprine 10 MG Tab PO PRN (13:48)
--- NOTE | 2021-02-21 14:33 | PCM.POSTAN ---
POST ANESTHESIA ASSESSMENT - MENTAL STATUS Mental Status: Alert (a bit drowsy) - VITAL SIGNS Vital Signs: 96% 74 11 97.3 157/73 - RESPIRATORY Respiratory Status: Respiratory Rate WNL, Airway Patent, O2 Saturation Stable, Supplemental Oxygen - CARDIOVASCULAR CV Status: Pulse Rate WNL, Blood Pressure Stable - GASTROINTESTINAL GI Status: No Symptoms - PAIN Pain Score: 4 (little drowsy) - POST OP HYDRATION Hydration Status: Adequate & Stable
--- NOTE | 2021-02-21 14:51 | PCM.SN.2 ---
- Free Text/Narrative Note: Left selective femoral nerve block at the adductor canal for post-procedure pain control under US guidance requested by Dr. Burton. Time Out: 1435 Start: 143 End: 1441 Chart reviewed. Consent signed. Questions answered. Appropriate monitors applied. Time out performed. Left mid-shaft femur identified with ultrasound, scanning medially of femur, the femoral artery in the adductor canal visualized, and the femoral nerve located laterally to the artery. The skin was prepped lateral to the ultrasound probe with chlorahexadine times two. The 21ga 4 insulated block needle was inserted under direct ultrasound guidance into the adductor canal. 30mL of 0.5% ropivacaine with 1:200,000 epinephrine was injected circumferentially around the nerve with intermittent negative aspiration noted. Patient tolerated the procedure well. Sterile technique noted along with sterile gloves, mask, and sterile probe cover. See picture on progress note and vital signs on nurses notes. Block completed in PACU. Angel Merritt CRNA Time Documentation
--- NOTE | 2021-02-21 15:16 | PCM48HPAN ---
Post Anesthesia Note - EVALUATION WITHIN 48HRS OF ANESTHETIC Vital Signs in Normal Range: Yes Patient Participated in Evaluation: Yes Respiratory Function Stable: Yes Airway Patent: Yes Cardiovascular Function Stable: Yes Hydration Status Stable: Yes Pain Control Satisfactory: Yes Nausea and Vomiting Control Satisfactory: Yes Mental Status Recovered: Yes Vital Signs: Last Vital Signs Temp 36.2 C 02/21/21 14:40 Pulse 65 02/21/21 14:40 Resp 16 02/21/21 14:40 BP 156/81 H 02/21/21 14:40 Pulse Ox 100 02/21/21 14:40 - COMMENTS/OBSERVATIONS Free Text/Narrative:: no anesthesia complications noted
--- NOTE | 2021-02-21 15:55 | CR ---
Right knee: AP and crosstable lateral views of the right knee were obtained. Comparison: Prior right knee CT study of 02/05/21. Knee prosthesis is seen. Components are aligned. Patellar prosthesis is also noted. Soft tissue air is seen. No acute bony abnormality is appreciated. Impression: 1. Normal postoperative radiographic appearance of recently placed right knee prostheses. Diagnostic code #2
[2021-02-21 16:10] VITALS: BP 144/86; PULSE 69
--- NOTE | 2021-03-07 07:20 | PCM.OPNOTE ---
- General Post-Op/Procedure Note Date of Surgery/Procedure: 02/21/21 Operative Procedure(s): left total knee arthroplasty with fadia duc robotics Pre Op Diagnosis: left knee osteoarthrosis Post-Op Diagnosis: Same Anesthesia Technique: Local, MAC, Spinal Primary Surgeon: Garret Burton Anesthesia Provider: Pattie Contreras Binder Cutter: Cheryl Dodd Binder Cutter: Deja Marie EBMisha in mLs: 5 Complications: None Condition: Good Free Text/Narrative:: 07/22 11mm 32x10
--- NOTE | 2021-03-08 07:32 | OR ---
DATE OF OPERATION: 02/21/2021 SURGEON: Garret Burton MD OPERATION PERFORMED: Left total knee arthroplasty with Sanger Nick robotics. PREOPERATIVE DIAGNOSIS: Left knee osteoarthrosis. POSTOPERATIVE DIAGNOSIS: Left knee osteoarthrosis. ANESTHESIA: Local MAC with spinal. ANESTHESIA PROVIDER: Pattie Contreras CRNA ASSISTANTS: Cheryl Dodd PA-C, and Deja Marie LPN. ESTIMATED BLOOD LOSS: 5 mL. COMPLICATIONS: None. CONDITION: Stable. IMPLANTS: 1. Sanger size 4 mm cemented PS femur. 2. Sesar size 4 mm cemented [place] tibial base plate. 3. Sesar size 4, 11 mm PS X3 polyethylene insert. 4. Sanger size 32 x 10 mm cemented asymmetric patella. DESCRIPTION OF PROCEDURE: The patient was identified in the preop holding area. Proper site was marked and identified by the surgeon. The patient was taken back to the operating theater where after adequate anesthesia, the patient's left lower extremity had a nonsterile tourniquet applied and it was sterilely prepped and draped in the usual sterile fashion. OR time-out was performed. The patient received 2 g IV Ancef. Leg allen was then applied to the left lower extremity. At this time, the left lower extremity was exsanguinated. Tourniquet was insufflated to 250 mmHg . Standard anterior incision was made. Medial parapatellar arthrotomy was created. Deep fibers of the MCL were raised as well as anterior fat pad was resected. Attention was turned to the patella. Patella measured 21 mm; it was resected to 13 mm for 32 x 10 mm patella. Drill holes were then drilled. Attention was then turned to the femur. Two 4.0 pins were placed intra- incisionally for the Sanger Nick robotic array and then 2 more were placed on the tibia 3 fingerbreadths below the tibial tubercle. The Sesar Nick robotic arrays were placed on both the femur and the tibia then at this time as well as checkpoints on the femur and tibia. Hip center rotation was then obtained. The medial and lateral malleoli were marked. At this time, 40 points were obtained off the femur and the tibia for the Sanger Nick robotic plan. The patient's knee was brought to full extension. Varus and valgus stresses were applied and then into 90 degrees of flexion with a curved osteotome. Varus and valgus stresses were applied. At this time, true[employer]them robotic plan was done to 19 mm gaps in both flexion and extension. Sanger Mako robotic arm was then brought in. A straight saw blade was then used for the tibial cut, the anterior femoral cut, the anterior chamfer cut, and the posterior femoral cut. All bony fragments were removed. Saw blade was then switched out and the distal femoral cut as well as the posterior chamfer cut was completed. At this time, medial and lateral menisci were resected as well as any posterior osteophytes. A size 4 mm trial tibia was then placed, size 4 mm trial femur was placed, and a size 4, 11 mm PS X3 polyethylene trial liner was placed. The patient's knee was brought to full extension and flexion. Varus and valgus stresses were applied, was found to be stable with no instability. No signs of liftoff or loosening were noted. At this time, box cut was completed on the femur. The pins were removed from the femur and the tibia as well as the arrays and the checkpoints. Cement was mixed on the back table. All cut surfaces were irrigated with pulse lavage irrigation with Ancef and then completely dried. Once the cement was ready, the Sanger size 4 mm cemented [place] tibial base plate having been previously stamped and drilled, was then cemented in place on the tibia. The Sesar size 4 mm cemented PS femur was cemented into place. The patient had a Sanger size 4, 11 mm PS X3 polyethylene insert placed. The patient's knee was brought to full extension. Excess cement was removed. A Sanger size 32 x 10 mm cemented asymmetric patella was then cemented into place. 1 L of pulse lavage irrigation with Ancef was irrigated through the knee along with 400 mL of Irrisept irrigation. Periarticular injection was completed. Topical tranexamic acid and vancomycin powder were applied. A #2 barbed suture was used for closure of the medial parapatellar arthrotomy in flexion. 2-0 Vicryl and Stratafix were used for subcutaneous closure. Prineo was used for cutaneous closure. The patient had a sterile soft dressing applied. The tibial holes were closed with nylon, and this was also covered with a sterile soft dressing. The patient had an FLORY wrap applied and was sent to PACU in stable condition. The patient tolerated the procedure well. MMOLGA /[id number]
== END 2021-02-21 16:58 | disposition home or self-care (01) ==
LOC: JD.SDS 10:11
PROVIDERS: ATTEND Orthopaedic Surgery
DX: M17.12 Unilateral primary osteoarthritis, left knee (principal); J45.909 Unspecified asthma, uncomplicated; F41.9 Anxiety disorder, unspecified; G47.33 Obstructive sleep apnea (adult) (pediatric); E66.9 Obesity, unspecified; E03.9 Hypothyroidism, unspecified; E55.9 Vitamin D deficiency, unspecified; Z88.0 Allergy status to penicillin; Z88.2 Allergy status to sulfonamides; Z79.899 Other long term (current) drug therapy; Z79.890 Hormone replacement therapy; E78.00 Pure hypercholesterolemia, unspecified; Z98.890 Other specified postprocedural states; Z87.891 Personal history of nicotine dependence; Z68.35 Body mass index [BMI] 35.0-35.9, adult
CPT/HCPCS: 01402; 73560-26-LT; 73560-LT; 97116-GP; 97161-GP; A9270-GY; C1713; C1776; J0171; J0690; J0697; J1885; J2250; J2270; J2405; J2704; J2795; J3010; J3370; J7120

== ENCOUNTER 2022-03-06 06:55 | Day surgery (SDC) | payer OTHER ==
[~2022-03-06 06:55] MED LIST changes: +Morphine 8 MG, EPINEPHrine 0.3 MG, Cefuroxime 750 MG, Ketorolac 30 MG, Sodium Chloride ... PRN; +Sodium Chloride 0.9% 10 ML Syringe FLUSH SCH
[2022-03-06] MEDS ORDERED: Ondansetron 4 MG/2 ML SDV IVPUSH PRN (08:03)
[2022-03-06] MEDS ORDERED: Propofol 200 MG/20 ML SDV ONE ×4 (08:09→10:20)
[2022-03-06] MEDS ORDERED: Midazolam 1 MG/ML 2 ML SDV ONE (08:14)
[2022-03-06] MEDS ORDERED: Lidocaine 1% 5 ML VIAL ONE (08:14)
[2022-03-06] MEDS ORDERED: fentaNYL 100 MCG/2 ML SDV ONE (08:14)
[2022-03-06] MEDS ORDERED: Ondansetron 4 MG/2 ML SDV ONE (08:14)
[2022-03-06] MEDS ORDERED: ceFAZolin 2 GM Vial ONE (08:21)
[2022-03-06] MEDS: Tranexamic Acid 1,000 MG/10 ML Vial ONE ×2 (08:28→10:31)
[2022-03-06] MEDS: Vancomycin 1 GM SDV ONE ×2 (08:29→10:31)
[2022-03-06] MEDS ORDERED: EPINEPHrine 1 MG/ML SDV ONE (08:33)
[2022-03-06] MEDS ORDERED: Ropivacaine 0.5% 5 MG/ML 30 ML SDV ONE (08:33)
[2022-03-06] MEDS ORDERED: Lactated Ringers 1,000 ML ONE (09:47)
[2022-03-06] MEDS ORDERED: Dexmedetomidine 200 MCG/2 ML SDV ONE (11:09)
[2022-03-06] MEDS: HYDROmorphone 0.5 MG/0.5 ML Syringe IVPUSH PRN ×2 (11:17→11:33)
[2022-03-06] MEDS: fentaNYL 100 MCG/2 ML SDV IVPUSH PRN ×3 (11:22→11:44)
[2022-03-06] MEDS ORDERED: oxyCODONE 5 MG Tab PO SCH (13:24)
[2022-03-06 16:29] VITALS: BP 129/66; PULSE 77
== END 2022-03-06 14:20 | disposition home or self-care (01) ==
LOC: JD.SDS 06:55
PROVIDERS: ATTEND Orthopaedic Surgery
DX: M17.11 Unilateral primary osteoarthritis, right knee (principal); I10 Essential (primary) hypertension; J45.909 Unspecified asthma, uncomplicated; F41.9 Anxiety disorder, unspecified; K58.9 Irritable bowel syndrome, unspecified; E78.2 Mixed hyperlipidemia; G47.33 Obstructive sleep apnea (adult) (pediatric); F32.A Depression, unspecified; E07.9 Disorder of thyroid, unspecified; E78.00 Pure hypercholesterolemia, unspecified; Z88.0 Allergy status to penicillin; Z88.2 Allergy status to sulfonamides; Z79.890 Hormone replacement therapy; Z79.899 Other long term (current) drug therapy; Z98.890 Other specified postprocedural states; Z90.710 Acquired absence of both cervix and uterus; Z87.891 Personal history of nicotine dependence; Z86.16 Personal history of COVID-19
CPT/HCPCS: 0055T; 27447; 73560; 97161; A9270; C1713; C1776; J0171; J0690; J0697; J1170; J1885; J2250; J2270; J2405; J2704; J2795; J3010; J3370; J7120; 01402; 64450; 76942

== ENCOUNTER 2023-05-22 08:13 | Emergency (ER) | payer OTHER ==
[2023-05-22] MEDS ORDERED: Acetaminophen/HYDROcodone 325-5 MG Tab PO ONE (08:35)
[2023-05-22] MEDS ORDERED: Sodium Chloride 0.9% 10 ML Syringe FLUSH PRN (09:16)
[2023-05-22] MEDS ORDERED: Propofol 200 MG/20 ML SDV IVPUSH ONE (09:16)
[2023-05-22] MEDS ORDERED: Lactated Ringers 1,000 ML IV SCH (09:30)
[2023-05-22 12:04] VITALS: BP 129/54; PULSE 63
== END 2023-05-22 11:20 | disposition home or self-care (01) ==
LOC: JD.ED 08:13
DX: S43.005A Unspecified dislocation of left shoulder joint, initial encounter (principal); S42.291A Other displaced fracture of upper end of right humerus, initial encounter for closed fracture; W19.XXXA Unspecified fall, initial encounter; I10 Essential (primary) hypertension; E78.00 Pure hypercholesterolemia, unspecified; J45.909 Unspecified asthma, uncomplicated; Z88.0 Allergy status to penicillin; Z88.2 Allergy status to sulfonamides; E66.9 Obesity, unspecified; Z68.37 Body mass index [BMI] 37.0-37.9, adult; Z79.899 Other long term (current) drug therapy
CPT/HCPCS: 23650; 73020; 73030; 73060; 73090; 99152; 99283; A9270; J2704; J3490; J7120

== ENCOUNTER 2023-09-19 07:23 | Emergency (ER) | payer OTHER ==
[2023-09-19 08:07] VITALS: BP 135/71; PULSE 62
== END 2023-09-19 08:07 | disposition home or self-care (01) ==
LOC: JD.ED 07:23
DX: H11.32 Conjunctival hemorrhage, left eye (principal); E78.00 Pure hypercholesterolemia, unspecified; J45.909 Unspecified asthma, uncomplicated; Z88.0 Allergy status to penicillin; Z88.2 Allergy status to sulfonamides; Z79.899 Other long term (current) drug therapy; Z79.82 Long term (current) use of aspirin; Z79.51 Long term (current) use of inhaled steroids; Z86.16 Personal history of COVID-19
CPT/HCPCS: 99283

== ENCOUNTER 2023-11-26 08:00 | Day surgery (SDC) | payer OTHER ==
[~2023-11-26 08:00] MED LIST changes: -Acetaminophen 325 MG Tab PO SCH; -Lactated Ringers 1,000 ML IV SCH; -Lidocaine 1%/Sod Bicarbonate in NS 8.4% 1 ML Syringe IDERM PRN; -Morphine 8 MG, EPINEPHrine 0.3 MG, Cefuroxime 750 MG, Ketorolac 30 MG, Sodium Chloride ... PRN; -Pregabalin 25 MG Cap PO SCH; -oxyCODONE ER 10 MG TAB.ER PO SCH
[2023-11-26] MEDS: Lactated Ringers 1,000 ML IV SCH (08:20)
[2023-11-26] MEDS ORDERED: Propofol 200 MG/20 ML SDV ONE ×3 (08:59→09:00)
[2023-11-26] MEDS ORDERED: Midazolam 1 MG/ML 2 ML SDV ONE (08:59)
[2023-11-26] MEDS ORDERED: Lidocaine 2% 5 ML SDV ONE (08:59)
[2023-11-26 10:57] VITALS: BP 143/66; PULSE 66
== END 2023-11-26 10:50 | disposition home or self-care (01) ==
LOC: JD.SDS 08:00
PROVIDERS: ATTEND Surgery
DX: Z12.11 Encounter for screening for malignant neoplasm of colon (principal); K57.30 Diverticulosis of large intestine without perforation or abscess without bleeding; K64.4 Residual hemorrhoidal skin tags; I10 Essential (primary) hypertension; E66.9 Obesity, unspecified; E78.00 Pure hypercholesterolemia, unspecified; F41.8 Other specified anxiety disorders; G47.33 Obstructive sleep apnea (adult) (pediatric); Z88.0 Allergy status to penicillin; Z88.2 Allergy status to sulfonamides; Z79.899 Other long term (current) drug therapy; Z79.890 Hormone replacement therapy; Z68.38 Body mass index [BMI] 38.0-38.9, adult
CPT/HCPCS: J2250; J2704; J3490; J7120

== ENCOUNTER 2024-04-26 07:47 | Day surgery (SDC) | payer OTHER ==
[2024-04-26] MEDS: Lactated Ringers 1,000 ML IV SCH (08:10)
[2024-04-26] MEDS ORDERED: Propofol 200 MG/20 ML SDV ONE (08:16)
[2024-04-26] MEDS ORDERED: Lidocaine 1% 4 ML ONE (08:16)
[2024-04-26] MEDS ORDERED: Glycopyrrolate 0.2 MG/ML 2 ML SDV ONE ×2 (08:20→08:50)
[2024-04-26] MEDS ORDERED: fentaNYL 100 MCG/2 ML SDV IVPUSH PRN (08:41)
[2024-04-26] MEDS ORDERED: HYDROmorphone 0.5 MG/0.5 ML Syringe IVPUSH PRN (08:41)
[2024-04-26] MEDS ORDERED: Ondansetron 4 MG/2 ML SDV IVPUSH PRN (08:41)
[2024-04-26 10:07] VITALS: BP 118/62; PULSE 70
== END 2024-04-26 10:00 | disposition home or self-care (01) ==
LOC: JD.SDS 07:47
PROVIDERS: ATTEND Surgery
DX: K21.00 Gastro-esophageal reflux disease with esophagitis, without bleeding (principal); K31.89 Other diseases of stomach and duodenum; K44.9 Diaphragmatic hernia without obstruction or gangrene; I10 Essential (primary) hypertension; Z88.2 Allergy status to sulfonamides; Z88.0 Allergy status to penicillin; Z79.899 Other long term (current) drug therapy; Z79.890 Hormone replacement therapy; Z87.891 Personal history of nicotine dependence
CPT/HCPCS: 43239; J2704; J3490; J7120; 00731